=== PATIENT | female | born 1975 | race Two or more races ===

== ENCOUNTER 2024-03-23 04:07 | Day surgery (SDC) | payer OTHER ==
[2024-03-19 13:56] VITALS: BMI 32.6
[2024-03-23 06:19] VITALS: RESP 18; TEMP 98
[2024-03-23] MEDS ORDERED: MIDAZOLAM HCL 2 MG/2 ML SINGLE DOSE VIAL ONE (08:48)
[2024-03-23] MEDS: IOHEXOL 180 MG/1 ML ML IJ ONE (09:01)
[2024-03-23] MEDS: BUPIVACAINE HCL/PF 0.25% (2.5MG/ML) 10 ML VIAL IJ ONE (09:01)
[2024-03-23] MEDS: DEXAMETHASONE SOD PHOSPHATE 10 MG/1 ML VIAL IVPUSH ONE (09:01)
[2024-03-23 09:21] VITALS: BP 107/50; PULSE 73
== END 2024-03-23 10:55 | disposition home or self-care (01) ==
LOC: JASU-SURG 04:07
PROVIDERS: ATTEND Physical Medicine & Rehabilitation
PROC: 3E0T33Z Introduction of Anti-inflammatory into Peripheral Nerves and Plexi, Percutaneous Approach (ICD-10-PCS; 2024-03-23)
PROC: 3E0T3BZ Introduction of Anesthetic Agent into Peripheral Nerves and Plexi, Percutaneous Approach (ICD-10-PCS; principal; 2024-03-23 09:00)
DX: M47.812 Spondylosis without myelopathy or radiculopathy, cervical region (principal)
CPT/HCPCS: 76000-TC-FY; J1100

== ENCOUNTER 2024-11-02 06:07 | Day surgery (SDC) | payer OTHER ==
[2024-10-27 14:01] VITALS: BMI 31.3
[2024-11-02 07:56] VITALS: RESP 20; TEMP 97.1
[2024-11-02] MEDS ORDERED: MIDAZOLAM HCL 2 MG/2 ML SINGLE DOSE VIAL ONE (09:43)
[2024-11-02] MEDS: BUPIVACAINE HCL/PF 0.5% (5MG/ML) 10 ML VIAL IJ ONE ×2 (09:56)
[2024-11-02] MEDS: LIDOCAINE HCL 1%, 10 MG/ML (50 mL VIAL) INF ONE ×2 (09:57)
[2024-11-02] MEDS: IOHEXOL 180 MG/1 ML ML IJ ONE ×3 (09:58→10:00)
[2024-11-02] MEDS: DEXAMETHASONE SOD PHOSPHATE 10 MG/1 ML VIAL IVPUSH ONE (10:10)
[2024-11-02 14:04] VITALS: BP 108/53; PULSE 61
== END 2024-11-02 11:00 | disposition home or self-care (01) ==
LOC: JASU-SURG 06:07
PROVIDERS: ATTEND Physical Medicine & Rehabilitation
PROC: 3E0T3BZ Introduction of Anesthetic Agent into Peripheral Nerves and Plexi, Percutaneous Approach (ICD-10-PCS; principal; 2024-11-02 09:00)
DX: M47.812 Spondylosis without myelopathy or radiculopathy, cervical region (principal)
CPT/HCPCS: 76000-TC-FY; J1100